=== PATIENT | female | born 2000 | race Caucasian/White ===

== ENCOUNTER 2023-07-24 17:10 | Emergency (ER) | payer OTHER ==
[~2023-07-24] VITALS: Ht 152.4 cm; Wt 54.4 kg
[2023-07-24 17:31] VITALS: BP 106/60; PULSE 81; RESP 18; TEMP 98.3; O2SAT 98
[2023-07-24 17:44] VITALS: O2SAT 98
== END 2023-07-24 18:54 | disposition home or self-care (01) ==
LOC: MED 17:10
DX: R55 Syncope and collapse (principal); R42 Dizziness and giddiness
CPT/HCPCS: 81025; 82948; 93005; 99283